=== PATIENT | female | born 1970 | race Caucasian/White ===

== ENCOUNTER → 2020-09-28 | Outpatient (CLI) | payer OTHER ==
[~2020-09-28] VITALS: Ht 162.6 cm; Wt 75.3 kg
[~2020-09-28] MED LIST: ADMELOG SO100 UNIT/1 SC; AMITRIPTYLINE100 MG PO; APIDRA SOL100 UNIT/1 SC; ATENOLOL50 MG PO; BENADRYL 25MG C25 MG PO; BUTALB-ACETAMI1 EAC1 PO; CELEBREX 200MG200 MG PO; DIFLUCAN150 MG PO; DIFLUCAN200 MG PO; DILTIAZEM 24HR120 M1 PO; DOXYCYCLINE HY100 MG PO; ELMIRON 100 MG100 MG PO; FLEXERIL 10 MG10 MG PO; HIZENTRA10 GM/50 M IV; HYDROXYZINE HCL50 MG PO; IMITREX50 MG PO; IPRAT-ALBUT 0.5-3 ML INH; LAC-HYDRIN FIV226 GM TP; LEVAQUIN500 MG PO; LEVAQUIN750 MG PO; LIDOCAINE PAIN1 EACH TP; LIPITOR TAB 1010 MG PO; MUCINEX1200 MG PO; NICOTINE PATCH1 EAC2 TOP; NYSTATIN100000 UNI PO; ONDANSETRON ODT4 MG SL; PHENERGAN 25 MG25 M1 PO; PROTONIX40 MG PO; SALAGEN5 MG PO; SINGULAIR10 MG PO; STEGLATRO15 MG PO; SYMBICORT 80-41 INHA INH; SYNTHROID50 MCG PO; TENORMIN 25 MG25 MG PO; TOUJEO MAX300 UNIT/1 SC; VENTOLIN HFA 66.7 GM INH; VIBRAMYCIN100 MG PO; VOLTAREN100 GM TP; ZANAFLEX4 MG PO; ZESTRIL2.5 MG PO; ZOLOFT100 MG PO; ZYRTEC10 MG PO
== END ==
LOC: OPSV 13:00
DX: M81.0 Age-related osteoporosis without current pathological fracture (principal)
CPT/HCPCS: 96372

== ENCOUNTER → 2020-10-16 | Outpatient (CLI) | payer OTHER | LOC: EXRD 14:40 | DX: M79.641 Pain in right hand (principal); M79.642 Pain in left hand; G89.29 Other chronic pain; M85.842 Other specified disorders of bone density and structure, left hand; M85.841 Other specified disorders of bone density and structure, right hand | CPT/HCPCS: 73130 ==

== ENCOUNTER → 2021-04-23 | Outpatient (CLI) | payer OTHER ==
[~2021-04-23] VITALS: Ht 162.6 cm; Wt 75.3 kg
== END ==
LOC: OPSV 11:53
DX: M81.0 Age-related osteoporosis without current pathological fracture (principal)
CPT/HCPCS: 96372

== ENCOUNTER 2021-06-10 15:22 | Emergency (ER) | payer OTHER ==
[2021-06-10 16:29] LABS: HEMOGLOBIN 14.3 gm/dl (12.3-15.3); RED BLOOD COUNT 5.13 M/UL (4.00-5.10); WHITE BLOOD COUNT 13.4 K/UL (4.5-11.0)
[2021-06-10 16:57] LABS: BUN/CREATININE RATIO 14 (0-10)
[2021-06-10] MEDS ORDERED: PROAIR HFA8.5 GM INH (17:37)
[2021-06-10] MEDS ORDERED: PREDNISONE 20 M20 MG PO (17:37)
== END 2021-06-10 19:09 | disposition home or self-care (01) ==
LOC: ER1 15:22
PROVIDERS: Physician Assistant
DX: U07.1 COVID-19 (principal); J40 Bronchitis, not specified as acute or chronic; J45.901 Unspecified asthma with (acute) exacerbation; G43.909 Migraine, unspecified, not intractable, without status migrainosus; E11.9 Type 2 diabetes mellitus without complications; I10 Essential (primary) hypertension; Z90.710 Acquired absence of both cervix and uterus; Z88.0 Allergy status to penicillin; F17.290 Nicotine dependence, other tobacco product, uncomplicated
CPT/HCPCS: 71045; 80053; 82550; 82553; 83874; 84484; 85025; 85379; 96374; 96375; 99284; J1200; J2765; J7030

== ENCOUNTER → 2021-10-07 | Outpatient (CLI) | payer OTHER ==
[~2021-10-07] MED LIST changes: +PREDNISONE 20 M20 MG PO; +PROAIR HFA8.5 GM INH
== END ==
LOC: HEART 5 09:30
DX: R00.2 Palpitations (principal); I27.20 Pulmonary hypertension, unspecified; I08.1 Rheumatic disorders of both mitral and tricuspid valves
CPT/HCPCS: 93306

== ENCOUNTER → 2021-12-19 | Outpatient (CLI) | payer OTHER ==
[~2021-12-19] VITALS: Ht 162.6 cm; Wt 49.0 kg
== END ==
LOC: OPSV 07:00
DX: Z53.9 Procedure and treatment not carried out, unspecified reason (principal)
CPT/HCPCS: 82533; 96372; 96523; J0834; J1642